=== PATIENT | female | born 1980 | race Caucasian/White ===

== ENCOUNTER 2021-05-14 10:01 | Emergency (ER) | payer OTHER, SELFPAY ==
--- NOTE | 2021-05-14 10:04 | ED.EAR ---
HPI - Ear Problem General Chief complaint: Upper Respiratory Infection Stated complaint: Ear pain. Time Seen by Provider: 05/14/21 10:04 Source: patient and RN notes reviewed History of Present Illness HPI Narrative: Patient is a 41-year-old female presents the urgent care with complaints of bilateral ear pain since 1:30 AM and sinus issues for the last 30 minutes . Patient denies any use of [id number] medication for her symptoms. States that last night she did have a headache. No other acute complaints. No acute distress noted. Currently denies of any fever, chills, nausea, vomiting. Patient denies of any known exposures to Covid, influenza or strep and states that she has been Covid vaccinated. Patient states that her main concern is receiving a work note because she did not go to work this morning . No other acute complaints. No acute distress noted. Patient aware the plan of care. Some parts of this dictation were generated by voice recognition software and may contain typographical and/or grammatical inaccuracies. Related Data Home Medications Medication Instructions Recorded Confirmed citalopram 40 mg PO DAILY 05/14/21 05/14/21 folic acid 1 mg PO DAILY 05/14/21 05/14/21 methotrexate sodium 10 mg PO WEEKLY 05/14/21 05/14/21 Allergies Allergy/AdvReac Type Severity Reaction Status Date / Time hydromorphone [From Dilaudid] AdvReac Nausea Verified 05/14/21 10:23 Review of Systems Review of Systems: CONSTITUTIONAL: Denies fever, chills, or sweats. EYES: Denies visual changes, redness, or discharge. ENT: Denies rhinorrhea. Reports of sore throat and bilateral otalgia with mild sinus congestion CARDIOVASCULAR: Denies chest pain, palpitations, or edema. RESPIRATORY: Denies cough or dyspnea. GASTROINTESTINAL: Denies abdominal pain, nausea, vomiting, or diarrhea. GENITOURINARY: Denies dysuria or hematuria. SKIN: Denies rash or itching. MUSCULOSKELETAL: Denies back pain, joint pain, or myalgia. NEUROLOGIC: Denies headache, numbness, or weakness. All other systems reviewed are negative, except as documented in HPI. PMFSH Comments At the time of my signature, I reviewed and agree with the nursing past medical, surgical, social, and family history. There is no relevant family history pertinent to the patient complaint. Exam Narrative: GENERAL: This is a well-nourished, well-developed patient, in no apparent distress. HEAD: normocephalic, atraumatic. EYES: PERRL. Sclera clear/white. Vision is grossly intact. EARS: External ears normal, auditory canals clear and without drainage, fluid noted behind right TM without otitis, TMs normal without perforation. Hearing grossly intact. NOSE: External nose normal with no obvious nasal discharge, nares without redness, no rhinorrhea. THROAT: Mucous membranes moist, posterior pharynx clear. Mild postnasal drainage NECK: Neck supple CARDIOVASCULAR: Regular rate and rhythm without murmurs, gallops, or rubs. RESPIRATORY: Clear to auscultation. Breath sounds equal bilaterally. No wheezes, rales, or rhonchi. SKIN: warm, intact with no suspicious lesions or rash, good texture and turgor. NEURO: awake, alert, and oriented to person, place and time. There were no obvious focal neurologic abnormalities. EXTREMITIES: No clubbing, cyanosis, or edema. Course Vital Signs Vital signs: Vital Signs Temperature 99.1 F 05/14/21 10:10 Pulse Rate 82 05/14/21 10:10 Respiratory Rate 20 05/14/21 10:10 Blood Pressure 114/69 05/14/21 10:10 Pulse Oximetry 98 05/14/21 10:10 Temperature 99.1 F 05/14/21 10:10 Pulse Rate 82 05/14/21 10:10 Respiratory Rate 20 05/14/21 10:10 Blood Pressure 114/69 05/14/21 10:10 Pulse Oximetry 98 05/14/21 10:10 Reviewed Medical Decision Making MDM Narrative Medical decision making narrative: Reviewed lab results with the patient. She is aware that strep swab was negative. Educated patient on culture we will call within 72 hour
[2021-05-14 10:10] VITALS: BP 114/69; PULSE 82; RESP 20; TEMP 37.3; O2SAT 98
== END 2021-05-14 10:30 | disposition home or self-care (01) ==
PROVIDERS: Emergency Provider Nurse Practitioner Family; PCP Family Medicine
DX: H92.03 Otalgia, bilateral (principal); J02.9 Acute pharyngitis, unspecified; Z86.16 Personal history of COVID-19; M06.9 Rheumatoid arthritis, unspecified; F32.A Depression, unspecified
CPT/HCPCS: 87081; 87880; 99213; G0463